=== PATIENT | male | born 1965 | race Caucasian/White ===

== ENCOUNTER 2022-05-19 06:48 | Emergency (ER) | payer BC ==
[2022-05-19 08:17] LABS: RED BLOOD COUNT 5.72 M/UL (4.20-5.50); WHITE BLOOD COUNT 9.1 K/UL (4.5-11.0)
[2022-05-19] MEDS ORDERED: ZOFRAN 4 MG TAB4 MG PO (09:39)
[2022-05-19] MEDS ORDERED: HYDROCODON-ACE1 EAC4 PO (09:39)
== END 2022-05-19 09:45 | disposition home or self-care (01) ==
LOC: ER1 06:48
PROVIDERS: Emergency Medicine
DX: N13.2 Hydronephrosis with renal and ureteral calculous obstruction (principal)
CPT/HCPCS: 80053; 81001; 85025; 96374; 96375; 99284; J1885; J2270; Q9967